=== PATIENT | female | born 1945 | race Caucasian/White ===

== ENCOUNTER → 2022-01-18 | Outpatient (CLI) | payer MEDICARE, MEDICAID | LOC: COL.RAD 13:08 | DX: Z12.2 Encounter for screening for malignant neoplasm of respiratory organs (principal); J84.10 Pulmonary fibrosis, unspecified; J43.9 Emphysema, unspecified; F17.211 Nicotine dependence, cigarettes, in remission ==

== ENCOUNTER → 2024-03-24 | Outpatient (CLI) | payer MEDICARE ==
[~2024-03-24] MED LIST: ANORO IH; APRESOLINE50 MG PO; AQUAPHOR BABY HEA41% TP; ASPIRIN 32325 MG/TA1 PO; ASPIRIN E.C. 8181 MG PO; BASAGLAR K100 UNIT/1 SQ; CALMOSEPTINE1 OIN TP; CERAVE 360 ML360 ML TP; COLACE 100100 MG/CAP PO; CORTIZONE-10 PLUS1% TP; CYMBALTA 60MG60 MG PO; GLUCOTROL10 MG PO; IMODIUM 2MG CAPS2 MG PO; JARDIANCE25 PO; LASIX 20MG TABL20 MG PO; LIDO35.4 TP; LIDODERM 5% PATC1 EA TP; LOPRESSOR100 MG PO; MIRALAX119G PO; NORCO 325 MG-51 TAB PO; NORCO 325 MG-7.1 TAB PO; NORVASC 10MG10 MG PO; PERCOCET 325 MG1 TA2 PO; PRINIVIL20 MG PO; PROTONIX 40MG T40 MG PO; REFRESH TEARS 330 ML OU; SALINE 45 ML45 ML NS; SINGULAIR 110 MG/TAB PO; TRADJENTA5 MG PO; TRIAMC 0.1 454 TOP; TYLENOL 325MG325 MG PO; VITAMIND3 5000 PO; ZOFRAN 4MG T4 MG/TAB PO; ZYRTEC 10MG10 MG PO; [UNRECOGNIZED DRUG - OTHER] TP
== END ==
LOC: COL.RAD 09:07
DX: Z12.2 Encounter for screening for malignant neoplasm of respiratory organs (principal); J43.2 Centrilobular emphysema; I25.10 Atherosclerotic heart disease of native coronary artery without angina pectoris